=== PATIENT | male | born 2000 | race Caucasian/White ===

== ENCOUNTER → 2023-10-01 17:14 | Outpatient (REF) | payer BC, SELFPAY | LOC: MRI 3T 17:14 | PROVIDERS: ATTENDING PHYSICIAN Student in an Organized Health Care Education/Training Program | DX: R51.9 Headache, unspecified (principal) | CPT/HCPCS: 70553; A9575 ==

== ENCOUNTER → 2025-01-30 12:53 | Outpatient (REF) | payer BC, SELFPAY | LOC: RAD 12:53 | PROVIDERS: ATTENDING PHYSICIAN Student in an Organized Health Care Education/Training Program | DX: R76.11 Nonspecific reaction to tuberculin skin test without active tuberculosis (principal); Z11.1 Encounter for screening for respiratory tuberculosis | CPT/HCPCS: 71046 ==